=== PATIENT | male | born 1995 | race Caucasian/White ===

== ENCOUNTER 2024-10-15 12:35 | Emergency (ER) | payer SELFPAY ==
[~2024-10-15] VITALS: Ht 165.1 cm; Wt 70.0 kg
[2024-10-15 12:38] VITALS: BP 135/96; PULSE 92; RESP 16; TEMP 36.7; O2SAT 98
== END 2024-10-15 17:46 | disposition home or self-care (01) ==
LOC: ER 12:35
DX: R41.82 Altered mental status, unspecified (principal); F10.129 Alcohol abuse with intoxication, unspecified; K74.60 Unspecified cirrhosis of liver; Y90.9 Presence of alcohol in blood, level not specified
CPT/HCPCS: 99283

== ENCOUNTER 2024-11-18 08:16 | Inpatient (IN) | payer SELFPAY ==
[~2024-11-18] VITALS: Ht 162.6 cm; Wt 57.6 kg
[2024-11-18 09:15] LABS: BASOPHILS % 1.1 % (0.0-2.0); EOSINOPHILS % 1.6 % (0.0-5.0); HEMATOCRIT. 31.2 % (42.0-52.0); HEMOGLOBIN. 10.3 g/dL (14.0-18.0); MEAN CORPUSCULAR HEMOGLOBIN 29.3 pg (28.0-32.0); MEAN CORPUSCULAR HGB CONC 33.2 g/dL (31.0-37.0); MEAN CORPUSCULAR VOLUME 88.4 fL (80.0-94.0); MEAN PLATELET VOLUME 7.5 fl (7.4-10.4); MONOCYTES % 5.8 % (2.0-8.0); NEUTROPHILS % 60.5 % (40.0-76.0); PLATELET 214 x1000/uL (130-400); RED BLOOD CELL COUNT 3.53 mill/uL (4.7-6.1); RED CELL DISTRIBUTION WIDTH 16.6 % (11.6-14.6); WHITE BLOOD COUNT 6.9 x1000/uL (4.5-11.0)
[2024-11-18 09:23] LABS: CHLORIDE 111 mEq/L (98-107); POTASSIUM 3.3 mEq/L (3.5-5.1); SODIUM 146 mEq/L (136-145)
[2024-11-18 09:24] LABS: CALCIUM 8.7 mg/dL (8.7-10.4); CARBON DIOXIDE 24 mEq/L (21-32)
[2024-11-18 09:29] LABS: CREATININE 0.6 mg/dL (0.6-1.3); GLUCOSE 118 mg/dL (70-105); UREA NITROGEN BLOOD 8 mg/dL (9-23)
[2024-11-18] MEDS: MORPHINE SULFATE 2 MG/ML INJ (NOT FOR IM USE) IV ONE (10:43)
[2024-11-18] MEDS: ONDANSETRON HCL 4MG/2ML INJ IV ONE (10:43)
[2024-11-18] MEDS: LORAZEPAM 2MG/ML INJ IV ONE (10:43)
[2024-11-18] MEDS ORDERED: MELATONIN 3MG TABLET PO PRN (16:00)
[2024-11-18] MEDS ORDERED: ONDANSETRON HCL 4MG/2ML INJ IV PRN (16:00)
[2024-11-18] MEDS ORDERED: GUAIFENESIN 200MG/10ML SUGAR FREE UDC PO PRN (16:00)
[2024-11-18] MEDS ORDERED: HYDRALAZINE 20MG/ML VIAL IV PRN (16:00)
[2024-11-18] MEDS ORDERED: LORAZEPAM 2MG/ML INJ IV PRN (16:00)
[2024-11-18] MEDS ORDERED: DOCUSATE SODIUM 100MG CAPSULE PO PRN (16:00)
[2024-11-18] MEDS ORDERED: IPRATROPIUM/ALBUTEROL 0.5-3(2.5)MG/3ML NEB HHN PRN (16:00)
[2024-11-18 16:47] LABS: ALANINE AMINOTRANSFERASE 88 IU/L (10-49); ASPARTATE AMINOTRANSFERASE 144 IU/L (<34); BILIRUBIN TOTAL 2.1 mg/dL (0.1-1.0); PROTEIN TOTAL 8.7 g/dL (6.0-8.3)
[2024-11-18 16:54] LABS: ETHANOL BLOOD 299 mg/dL (<10)
[2024-11-18] MEDS: LORAZEPAM 2MG/ML INJ IV NR (16:56)
[2024-11-18] MEDS: KCL 20MEQ/100ML PREMIX 100 ML IV NR (16:57)
[2024-11-18] MEDS: POTASSIUM CHLORIDE 20MEQ/PACKET PO NR (16:57)
[2024-11-18 17:00] VITALS: BP 115/70; PULSE 74; RESP 12; TEMP 36.7; O2SAT 100
[2024-11-18 17:06] VITALS: BP 115/70; PULSE 74; RESP 12; TEMP 36.8
[2024-11-18] MEDS: ACETAMINOPHEN 325MG TABLET PO PRN (18:58)
[2024-11-18 20:00] VITALS: BP 117/72; PULSE 87; RESP 17; TEMP 36.4; O2SAT 99
[2024-11-18] MEDS: CHLORDIAZEPOXIDE 25MG CAPSULE PO SCH (21:22)
[2024-11-18] MEDS: GABAPENTIN 300MG CAPSULE PO SCH (21:22)
[2024-11-18] MEDS: MVI, ADULT NO.1 10 ML, FOLIC ACID 1 MG, THIAMINE HCL 100 MG in SODIUM CHLORIDE 0.9% 1,0... IV SCH (21:22)
[2024-11-18 21:41] LABS: HEPATITIS B SURFACE ANTIGEN NEGATIVE (Negative)
[2024-11-18 22:02] LABS: HEPATITIS A AB IGM NEGATIVE (Negative)
[2024-11-18 22:03] LABS: HEPATITIS B CORE AB IGM NEGATIVE (Negative); HEPATITIS C AB NON REACTIVE (Neg) (Negative)
[2024-11-19] VITALS: BP 112/72; PULSE 67; RESP 17; TEMP 36.4; O2SAT 98
[2024-11-19 04:00] VITALS: BP 110/68; PULSE 79; RESP 16; TEMP 36.4; O2SAT 79
[2024-11-19 06:43] LABS: BASOPHILS % 0.9 % (0.0-2.0); EOSINOPHILS % 2.9 % (0.0-5.0); HEMOGLOBIN. 9.8 g/dL (14.0-18.0); LYMPHOCYTES % 23.6 % (20.0-50.0); MEAN CORPUSCULAR HEMOGLOBIN 29.5 pg (28.0-32.0); MEAN CORPUSCULAR HGB CONC 33.9 g/dL (31.0-37.0); MEAN PLATELET VOLUME 7.4 fl (7.4-10.4); MONOCYTES % 9.2 % (2.0-8.0); NEUTROPHILS % 63.4 % (40.0-76.0); PLATELET 123 x1000/uL (130-400); RED BLOOD CELL COUNT 3.33 mill/uL (4.7-6.1); RED CELL DISTRIBUTION WIDTH 16.2 % (11.6-14.6); WHITE BLOOD COUNT 3.8 x1000/uL (4.5-11.0)
[2024-11-19 06:52] LABS: CHLORIDE 111 mEq/L (98-107); POTASSIUM 3.9 mEq/L (3.5-5.1); SODIUM 142 mEq/L (136-145)
[2024-11-19 06:53] LABS: CARBON DIOXIDE 21 mEq/L (21-32)
[2024-11-19 06:58] LABS: CREATININE 0.5 mg/dL (0.6-1.3); FERRITIN 58 ng/mL (22-322); GLUCOSE 90 mg/dL (70-105); IRON 126 ug/dL (65-175); TOTAL IRON BINDING CAPACITY 328 ug/dl (250-425); TRIGLYCERIDE 102 mg/dL (0-150); UREA NITROGEN BLOOD 8 mg/dL (9-23)
[2024-11-19 06:59] LABS: LDL CHOLESTEROL 162 mg/dL (5-100); VITAMIN B12 SERUM 1182 pg/mL (211-911)
[2024-11-19 07:00] LABS: ALANINE AMINOTRANSFERASE 65 IU/L (10-49); ALBUMIN 3.3 g/dL (3.2-4.8); ASPARTATE AMINOTRANSFERASE 102 IU/L (<34); BILIRUBIN TOTAL 2.7 mg/dL (0.1-1.0); CHOLESTEROL 256 mg/dL (<200); FOLIC ACID (FOLATE) SERUM > 20.00 ng/mL (>5.38); HDL CHOLESTEROL 62 mg/dL (>55); PHOSPHORUS 3.5 mg/dL (2.5-4.9)
[2024-11-19 07:01] LABS: PROTEIN TOTAL 7.2 g/dL (6.0-8.3)
[2024-11-19 07:03] LABS: THYROID STIMULATING HORMONE 1.88 uIU/mL (0.55-4.78)
[2024-11-19 08:30] VITALS: BP 100/58; PULSE 72; RESP 18; TEMP 36.9; O2SAT 100
[2024-11-19] MEDS: SPIRONOLACTONE 25MG TABLET PO SCH (09:00)
[2024-11-19] MEDS: MAGNESIUM 2 G PREMIX 50 ML IV NR (09:10)
[2024-11-19] MEDS: FOLIC ACID 1MG TABLET PO SCH (09:10)
[2024-11-19] MEDS: MULTIVITAMINS,THER W-MINERALS TABLET PO SCH (09:10)
[2024-11-19] MEDS: FUROSEMIDE 20MG TABLET PO SCH (09:12)
[2024-11-19] MEDS: THIAMINE HCL 100MG TABLET PO SCH (09:12)
[2024-11-19] MEDS: FERROUS SULFATE 325MG TABLET PO SCH (09:12)
[2024-11-19] MEDS: PANTOPRAZOLE SODIUM 40 MG/VIAL IV SCH (09:12)
[2024-11-19] MEDS: KETOROLAC 15MG/ML VIAL IV PRN (10:13)
[2024-11-19 12:22] LABS: CALCIUM 9.4 mg/dL (8.7-10.4)
[2024-11-19 12:30] VITALS: BP 110/62; PULSE 69; RESP 18; TEMP 36.7; O2SAT 100
[2024-11-19 16:00] VITALS: BP 103/71; PULSE 71; RESP 18; TEMP 36.8; O2SAT 100
[2024-11-19 20:00] VITALS: BP 106/68; PULSE 70; RESP 16; TEMP 36.2; O2SAT 100
[2024-11-20 01:18] VITALS: BP 111/70; PULSE 63; RESP 18; TEMP 37.1; O2SAT 100
[2024-11-20 04:00] VITALS: BP 107/68; PULSE 66; RESP 18; TEMP 36.5; O2SAT 100
[2024-11-20 06:22] LABS: CARBON DIOXIDE 22 mEq/L (21-32); CHLORIDE 104 mEq/L (98-107); POTASSIUM 3.6 mEq/L (3.5-5.1); SODIUM 138 mEq/L (136-145)
[2024-11-20 06:23] LABS: CALCIUM 9.5 mg/dL (8.7-10.4)
[2024-11-20 06:28] LABS: CREATININE 0.8 mg/dL (0.6-1.3); GLUCOSE 86 mg/dL (70-105); UREA NITROGEN BLOOD 14 mg/dL (9-23)
[2024-11-20 06:29] LABS: HEMATOCRIT 29.8 % (42.0-52.0); MEAN CORPUSCULAR HEMOGLOBIN 29.3 pg (28.0-32.0); MEAN CORPUSCULAR HGB CONC 33.6 g/dL (31.0-37.0); MEAN CORPUSCULAR VOLUME 87.4 fL (80.0-94.0); PLATELET 116 x1000/uL (130-400); RED BLOOD CELL COUNT 3.41 mill/uL (4.7-6.1); WHITE BLOOD COUNT 4.5 x1000/uL (4.5-11.0)
[2024-11-20 08:00] VITALS: BP 115/72; PULSE 71; RESP 18; TEMP 36.6; O2SAT 100
[2024-11-20] MEDS ORDERED: FERR-63 PO (11:25)
[2024-11-20] MEDS ORDERED: ONDA4TAB50 MT (11:25)
[2024-11-20] MEDS ORDERED: FURO20TA4 PO (11:25)
[2024-11-20] MEDS ORDERED: SPIR25TA PO (11:25)
[2024-11-20] MEDS ORDERED: FOLI-43 PO (11:25)
[2024-11-20] MEDS ORDERED: THIA100T72 PO (11:25)
[2024-11-20] MEDS ORDERED: GABA-1180 PO (11:25)
[2024-11-20] MEDS ORDERED: PANT20TA17 MT (11:25)
[2024-11-20 12:00] VITALS: BP 112/78; PULSE 73; RESP 18; TEMP 36.6; O2SAT 100
[2024-11-20 12:03] VITALS: BP 112/68; PULSE 89; TEMP 98.2; O2SAT 98
== END 2024-11-20 13:28 | disposition home or self-care (01) | DRG 775 ==
LOC: ER 08:16 → 5WST 14:50 → EDBEDREQ 14:55 → EDBEDREQTM 14:55 → 7EST 11-19 23:57
PROVIDERS: ADMIT Hospitalist; ATTEND Hospitalist
DX: F10.239 Alcohol dependence with withdrawal, unspecified (principal); F10.229 Alcohol dependence with intoxication, unspecified; Z76.82 Awaiting organ transplant status; E87.0 Hyperosmolality and hypernatremia; K72.90 Hepatic failure, unspecified without coma; D63.8 Anemia in other chronic diseases classified elsewhere; E87.6 Hypokalemia; E86.0 Dehydration; R74.01 Elevation of levels of liver transaminase levels; Z79.899 Other long term (current) drug therapy; Y90.8 Blood alcohol level of 240 mg/100 ml or more
CPT/HCPCS: 36415; 76700; 80048; 80053; 80061; 80076; 80320; 82607; 82728; 82746; 83540; 83550; 83735; 84100; 84145; 84439; 84443; 85025; 85027; 85044; 86705; 86709; 87340; 93005; 93970; 99285; J1885; J2060; J2270; J2470; J3411; J3475; J3480; J3490; J7030; G0480